=== PATIENT | female | born 2000 | race African-American/Black ===

== ENCOUNTER 2019-03-29 10:23 | Emergency (ER) | payer OTHER ==
[~2019-03-29] VITALS: Ht 157.5 cm; Wt 74.8 kg
[2019-03-29] MEDS ORDERED: MOBIC15 MG PO (13:02)
[2019-03-29 13:46] VITALS: BP 120/69
== END 2019-03-29 13:45 | disposition home or self-care (01) ==
LOC: ER 10:23
DX: S76.811A Strain of other specified muscles, fascia and tendons at thigh level, right thigh, initial encounter (principal); Z88.2 Allergy status to sulfonamides; Z88.8 Allergy status to other drugs, medicaments and biological substances; V89.2XXA Person injured in unspecified motor-vehicle accident, traffic, initial encounter; Y92.89 Other specified places as the place of occurrence of the external cause; Y93.89 Activity, other specified; Y99.8 Other external cause status